=== PATIENT | male | born 1955 | race Caucasian/White ===

== ENCOUNTER 2020-05-16 11:00 | Emergency (ER) | payer MEDICARE, MEDICAID ==
[~2020-05-16] VITALS: Ht 172.7 cm; Wt 75.0 kg
[~2020-05-16 11:00] MED LIST: NO HOME MEDS
[2020-05-16] MEDS ORDERED: LIDOcaine 1% W/epiNEPHrine 1:200,000 10ml vial IJ ONE (11:10)
[2020-05-16 11:51] VITALS: BP 157/93
== END 2020-05-16 11:52 | disposition home or self-care (01) ==
LOC: ER 11:01
DX: S63.275A Dislocation of unspecified interphalangeal joint of left ring finger, initial encounter (principal); I10 Essential (primary) hypertension; Z87.11 Personal history of peptic ulcer disease; X50.1XXA Overexertion from prolonged static or awkward postures, initial encounter; Y93.89 Activity, other specified; Y92.89 Other specified places as the place of occurrence of the external cause; Y99.8 Other external cause status
CPT/HCPCS: 26011; 26770; 73140; 99284

== ENCOUNTER 2021-06-19 03:51 | Observation (INO) | payer MEDICARE, MEDICAID ==
[~2021-06-19] VITALS: Ht 172.7 cm; Wt 79.5 kg
[2021-06-19] MEDS ORDERED: LISI20TA28 PO (04:43)
[2021-06-19 04:57] LABS: APTT 30 SECONDS (22-32)
[2021-06-19 04:59] LABS: ALANINE AMINOTRANSFERASE 23 U/L (12-78); ALBUMIN 3.5 G/DL (3.4-5.0); ALKALINE PHOSPHATASE 91 IU/L (46-116); ANION GAP 6 (8-16); ASPARTATE AMINO TRANSFERASE 20 U/L (10-37); BILIRUBIN,TOTAL 0.3 MG/DL (0.1-1.0); BLOOD UREA NITROGEN 19 MG/DL (7-18); BUN/CREATININE RATIO 18.1 (5.4-32.0); CALCIUM 8.8 MG/DL (8.5-10.1); CHLORIDE 105 MMOL/L (99-107); CREATININE 1.05 MG/DL (0.60-1.10); GLUCOSE 114 MG/DL (70-104); POTASSIUM 4.3 MMOL/L (3.5-5.1); SODIUM 141 MMOL/L (135-145); TOTAL CARBON DIOXIDE 29.7 MMOL/L (24-32); TOTAL PROTEIN 7.1 G/DL (6.4-8.2); eGFR 71 ML/MIN
[2021-06-19 05:14] LABS: BASOPHILS # (AUTO) 0.1 X10'3 (0-0.2); BASOPHILS % (AUTO) 0.9 % (0-1); EOSINOPHILS # (AUTO) 0.2 X10'3 (0-0.9); EOSINOPHILS % (AUTO) 3.7 % (0-6); HEMATOCRIT 45.6 % (42.0-52.0); HEMOGLOBIN 15.2 g/dl (14.0-17.9); LYMPHOCYTES # (AUTO) 1.1 X10'3 (1.1-4.8); LYMPHOCYTES % (AUTO) 18.3 % (21-51); MEAN CORPUSCULAR HEMOGLOBIN 27.7 PG (27.0-31.0); MEAN CORPUSCULAR HGB CONC 33.4 g/dL (33.0-36.5); MEAN CORPUSCULAR VOLUME 83.1 FL (78-98); MEAN PLATELET VOLUME 6.9 FL (7.4-10.4); MONOCYTES # (AUTO) 0.7 X10'3 (0-0.9); MONOCYTES % (AUTO) 11.5 % (2-12); NEUTROPHILS # (AUTO) 4.1 X10'3 (1.8-7.7); NEUTROPHILS % (AUTO) 65.6 % (42-75); PLATELET COUNT 425 X10'3 (140-440); RED BLOOD COUNT 5.49 X10'6 (4.70-6.10); RED CELL DISTRIBUTION WIDTH 14.1 % (11.5-14.5); WHITE BLOOD COUNT 6.3 X10'3 (4.5-11.0)
[2021-06-19 07:16] LABS: OCCULT BLOOD STOOL POSITIVE (Neg)
--- NOTE | 2021-06-19 07:22 | NUR ---
pt states, " im short of breath sometimes. had covid one year ago. 2016 dx with copd. stop smoking about 10 years ago.
--- NOTE | 2021-06-19 09:50 | NUR ---
gastrologist, dr. mckeon at bedside.
[2021-06-19] MEDS ORDERED: ondansetron/PF 4mg/2ml inj IV PRN (09:55)
[2021-06-19] MEDS ORDERED: magnesium 4gm in 100ml NS 100 ML IV PRN (09:55)
[2021-06-19] MEDS ORDERED: potassium CL 10mEq/100ml bag 100 ML IV PRN (09:55)
[2021-06-19] MEDS ORDERED: acetaminophen 325mg tablet PO PRN (09:55)
[2021-06-19] MEDS ORDERED: potassium Cl 20 mEq SR tablet PO PRN ×2 (09:55)
[2021-06-19] MEDS: normal saline 1000ml 1,000 ML IV SCH ×2 (09:55→19:55)
[2021-06-19] MEDS ORDERED: magnesium Cl slow-release 64mg tablet PO PRN (09:55)
[2021-06-19] MEDS ORDERED: magnesium 2GM in 50ml NS 50 ML IV PRN (09:55)
[2021-06-19] MEDS ORDERED: PEG 3350/Na sulf,bicarb,Cl/KCl oral sol 4 liter bottle PO ONE (10:05)
--- NOTE | 2021-06-19 10:40 | NUR ---
spoke with dr. mckeon regarding time to start golytely. states, "start golytely at 1500.
--- NOTE | 2021-06-19 11:26 | NUR ---
GI NURSE CALLED AND ASKED ABOUT GOLYTELY PREP. INFORMED HER I SPOKE WITH DR. KUMAR AND SHE WANTS IT STARTED A 3 PM TODAY.
[2021-06-19] MEDS ORDERED: LISI10TA27 PO (11:31)
[2021-06-19 14:58] LABS: MAGNESIUM 2.1 MG/DL (1.5-2.4)
--- NOTE | 2021-06-19 15:20 | NUR ---
report given to david Ivey but room is not ready. will call when room ready
[2021-06-19 18:00] VITALS: BP 149/83
[2021-06-19 20:47] VITALS: BP 142/81
[2021-06-19] MEDS: K and/or MAG REPLACEMENT MC SCH (20:50)
[2021-06-19 22:00] VITALS: BP 131/88
[2021-06-20] VITALS (7 sets, daily range): BP systolic 125–151; BP diastolic 64–100
--- NOTE | 2021-06-20 01:53 | NUR ---
[id number] Pt had run of vtach 7 beats. pt is asymptomatic, currently sleeping in bed. Dr Giron notified via messaging system. TM
[2021-06-20] MEDS: normal saline 1000ml 1,000 ML IV SCH (05:55)
[2021-06-20 07:06] LABS: BASOPHILS % (AUTO) 0.8 % (0-1); EOSINOPHILS # (AUTO) 0.1 X10'3 (0-0.9); EOSINOPHILS % (AUTO) 1.9 % (0-6); HEMATOCRIT 42.6 % (42.0-52.0); HEMOGLOBIN 14.3 g/dl (14.0-17.9); LYMPHOCYTES # (AUTO) 0.7 X10'3 (1.1-4.8); LYMPHOCYTES % (AUTO) 11.8 % (21-51); MEAN CORPUSCULAR HEMOGLOBIN 27.9 PG (27.0-31.0); MEAN CORPUSCULAR HGB CONC 33.6 g/dL (33.0-36.5); MEAN CORPUSCULAR VOLUME 83.1 FL (78-98); MEAN PLATELET VOLUME 6.9 FL (7.4-10.4); MONOCYTES # (AUTO) 0.6 X10'3 (0-0.9); NEUTROPHILS # (AUTO) 4.4 X10'3 (1.8-7.7); NEUTROPHILS % (AUTO) 75.5 % (42-75); PLATELET COUNT 385 X10'3 (140-440); RED BLOOD COUNT 5.12 X10'6 (4.70-6.10); RED CELL DISTRIBUTION WIDTH 14.2 % (11.5-14.5); WHITE BLOOD COUNT 5.9 X10'3 (4.5-11.0)
[2021-06-20 07:53] LABS: ALBUMIN 3.3 G/DL (3.4-5.0); ANION GAP 10 (8-16); BLOOD UREA NITROGEN 14 MG/DL (7-18); BUN/CREATININE RATIO 14.6 (5.4-32.0); CALCIUM 8.6 MG/DL (8.5-10.1); CHLORIDE 108 MMOL/L (99-107); CREATININE 0.96 MG/DL (0.60-1.10); GLUCOSE 85 MG/DL (70-104); MAGNESIUM 2.1 MG/DL (1.5-2.4); POTASSIUM 4.5 MMOL/L (3.5-5.1); SODIUM 141 MMOL/L (135-145); TOTAL CARBON DIOXIDE 22.9 MMOL/L (24-32); eGFR 78 ML/MIN
[2021-06-20] MEDS: K and/or MAG REPLACEMENT MC SCH (08:00)
[2021-06-20] MEDS ORDERED: fentaNYL/PF 50MCG/1 ML 2ML syringe ONE (10:57)
[2021-06-20] MEDS ORDERED: MIDAZolam 1 MG/ML 5ML VIAL ONE (10:57)
[2021-06-20] MEDS ORDERED: diphenhydrAMINE 50 mg/ml inj ONE (10:57)
== END 2021-06-20 16:39 | disposition home or self-care (01) ==
LOC: ER 03:51 → ED HOLD 10:01 → PCU 3S 16:00
PROVIDERS: ADMIT Internal Medicine; ATTEND Internal Medicine
DX: K92.1 Melena (principal); K57.30 Diverticulosis of large intestine without perforation or abscess without bleeding; I10 Essential (primary) hypertension; Z87.11 Personal history of peptic ulcer disease; Z86.010 Personal history of colon polyps; Z79.899 Other long term (current) drug therapy
CPT/HCPCS: 36415; 45378; 71045; 80048; 80053; 82272; 83605; 83735; 85025; 85610; 85730; 93005; 96360; 96361; 99285; G0378; J1200; J2250; J3010; J7030; J7040; 99152; 99153; A4620